=== PATIENT | male | born 1950 | race Caucasian/White ===

== ENCOUNTER 2016-09-01 06:12 | Emergency (ER) | payer BC, MEDICARE ==
[2016-09-01 06:27] VITALS: BP 151/90
[2016-09-01] MEDS ORDERED: Albuterol/Ipratropium 3.0-0.5 MG/3 ML Neb Soln NEB ONE (06:35)
--- NOTE | 2016-09-01 06:38 | EDM.PDOC ---
ED HPI GENERAL MEDICAL PROBLEM - General Chief Complaint: Respiratory Problem Stated Complaint: COUGHING CONSTANTLY Time Seen by Provider: 09/01/16 06:28 Source of Information: Reports: Patient, Family History Limitations: Reports: No Limitations - History of Present Illness INITIAL COMMENTS - FREE TEXT/NARRATIVE: This is a 66-year-old male. He's been having problems with coughing and wheezing since June. He has seen his family doctor initially who placed him on a Z-Winston and some steroids and this seemed to help just slightly but once he stopped the antibiotics and the steroids it continued. He received another Z- Winston by his doctor but that didn't do any good and he continues to wheeze and continues to cough. He has bouts of coughing. He has used an albuterol inhaler but he seems like when he uses it and his lungs seemed to open up he begins to cough even more. He's had no fever no chills he denies any significant upper airway congestion. He's had no nausea no vomiting. - Related Data Allergies Allergy/AdvReac Type Severity Reaction Status Date / Time No Known Allergies Allergy Verified 09/01/16 06:27 Home Meds: Home Meds Albuterol Sulfate [Proair Hfa] 8.5 gm IH Q6H #1 hfa.aer.ad 09/01/16 [Rx] Fluticasone/Salmeterol [Advair Hfa 230-21 Mcg Inhaler] 8 gm IH Q12H #1 aer.w.adap 09/01/16 [Rx] Lisinopril 20 mg PO DAILY 09/01/16 [History] Metoprolol Tartrate 50 mg PO DAILY 09/01/16 [History] atorvaSTATin [Lipitor] 80 mg PO DAILY 09/01/16 [History] predniSONE [Prednisone] 20 mg PO QAM #10 tablet 09/01/16 [Rx] ED ROS GENERAL - Review of Systems Review Of Systems: See Below Constitutional: Denies: Fever, Chills HEENT: Denies: Sinus Problem, Throat Pain Respiratory: Reports: Shortness of Breath, Wheezing, Cough Cardiovascular: Reports: No Symptoms Endocrine: Reports: No Symptoms GI/Abdominal: Denies: Abdominal Pain, Diarrhea, Nausea, Vomiting : Reports: No Symptoms Musculoskeletal: Reports: No Symptoms Skin: Reports: No Symptoms Neurological: Reports: No Symptoms Psychiatric: Reports: No Symptoms ED EXAM, GENERAL - Physical Exam Exam: See Below Exam Limited By: No Limitations General Appearance: Alert, WD/WN, No Apparent Distress Eye Exam: Bilateral Eye: Normal Inspection Ears: Normal External Exam, Normal Canal, Normal TMs Nose: Normal Inspection Throat/Mouth: Normal Inspection, Normal Lips, Normal Oropharynx, Normal Voice, No Airway Compromise Head: Normocephalic Neck: Supple Respiratory/Chest: Wheezing, Other (There is a end expiratory wheeze noted with no significant prolonged expiratory phase and this is heard in the bases of the lungs and slightly apexs). No: Crackles, Rales, Rhonchi Cardiovascular: Regular Rate, Rhythm, No Murmur GI/Abdominal: Soft, Non-Tender Back Exam: Full Range of Motion Extremities: Normal Inspection, Normal Range of Motion Neurological: Alert, Oriented Psychiatric: Normal Affect, Normal Mood Skin Exam: Warm, Dry Course - Vital Signs Last Recorded V/S: Last Vital Signs Temp 97.1 F 09/01/16 06:22 Pulse 72 09/01/16 06:52 Resp 12 09/01/16 06:22 BP 151/90 H 09/01/16 06:22 Pulse Ox 95 09/01/16 06:22 - Orders/Labs/Meds Orders: Active Orders 24 hr Category Date Time Status RT Aerosol Therapy [RC] ASDIRECTED Care 09/01/16 06:35 Active Chest 2V [CR] Stat Exams 09/01/16 06:34 Taken Labs: Laboratory Tests 09/01/16 Range/Units 06:50 WBC 8.25 (4.23-9.07) K/mm3 RBC 5.09 (4.63-6.08) M/mm3 Hgb 13.6 L (13.7-17.5) gm/L Hct 42.2 (40.1-51.0) % MCV 82.9 (79.0-92.2) fl MCH 26.7 (25.7-32.2) pg MCHC 32.2 (32.2-35.5) g/dl RDW Std Deviation 51.5 H (35.1-43.9) fL Plt Count 341 H (163-337) K/mm3 MPV 9.0 L (9.4-12.3) fl Neut % (Auto) 60.4 (34.0-67.9) % Lymph % (Auto) 21.7 L (21.8-53.1) % [place] % (Auto) 8.8 (5.3-12.2) % Eos % (Auto) 8.4 H (0.8-7.0) Baso % (Auto) 0.5 (0.1-1.2) % Neut # (Auto) 4.98 (1.78-5.38) K/mm3 Lymph # (Auto) 1.79 (1.32-3.57) K/mm3 [place] # (Auto) 0.73 (0.30-0.82) K/mm3 Eos # (Auto) 0.69 H (0.04-0.54) K/mm3 Baso # (Auto) 0.04 (0.01-0.08) K/mm3 Meds: Medications Discontinued Medications Generic Name Dose Route Start Last Admin Trade Name Freq PRN Reason Stop Dose Admin Albuterol/Ipratropium 3 ml 09/01/16 06:35 09/01/16 06:51 Duoneb 3.0-0.5 Mg/3 Ml NEB 09/01/16 06:36 3 ml ONETIME ONE Administration - Radiology Interpretation Free Text/Narrative:: Chest x-ray does not show any acute changes - Re-Assessments/Exams Free Text/Narrative Re-Assessment/Exam: 09/01/16 07:40 I spoke to the patient and his significant other regarding the chest x-ray and the blood work. It sounds like he has reactive airway disease probably related to an allergen. To last from June until now and the antibiotics packs did not make any difference with suggestive more of an allergen-related wheezing. He states some years ago he had a problem with wheezing and Advair inhaler made a big difference. He has been using albuterol inhaler that opens them up and helps but it never cures the problem. Decreased him to follow up with his family doctor for further testing. Departure - Departure Time of Disposition: 07:42 Disposition: Home, Self-Care 01 Condition: Fair Clinical Impression: Reactive airway disease Qualifiers: Asthma severity: moderate persistent Asthma complication type: with acute exacerbation Qualified Code(s): J45.41 - Moderate persistent asthma with (acute ) exacerbation - Discharge Information Prescriptions: Albuterol Sulfate [Proair Hfa] 8.5 gm IH Q6H #1 hfa.aer.ad Fluticasone/Salmeterol [Advair Hfa 230-21 Mcg Inhaler] 8 gm IH Q12H #1 aer.w.adap predniSONE [Prednisone] 20 mg PO QAM #10 tablet Instructions: Asthma, Adult Referrals: Clif Leon Jr, MD [Primary Care Provider] - Forms: ED Department Discharge Additional Instructions: When you get the steroids start taking 2 tablets every morning for 5 days, consider getting some Claritin or Radha and take it faithfully, do not get the D form of Claritin or Radha since it will affect your blood pressure, continue to drink lots of fluids, take the Mucinex as needed to break up the phlegm so you can cough it up, continue with your albuterol inhaler and consider using the Advair inhaler twice a day to help with the wheezing, you will need to follow-up with your family doctor for additional workup as an outpatient for the persistent wheezing, return to the ER if needed - My Orders Last 24 Hours: My Active Orders 09/01/16 06:34 Chest 2V [CR] Stat 09/01/16 06:35 RT Aerosol Therapy [RC] ASDIRECTED - Assessment/Plan Last 24 Hours: My Active Orders 09/01/16 06:34 Chest 2V [CR] Stat 09/01/16 06:35 RT Aerosol Therapy [RC] ASDIRECTED
--- NOTE | 2016-09-02 08:28 | CR ---
Chest: Two views of the chest were obtained. Comparison: No previous chest x-ray. Heart size and mediastinum are normal. Previous sternotomy is seen. Lungs are clear with no acute infiltrates. Minimal degenerative spurring is scattered within the spine. Impression: 1. Nothing acute is identified on two-view chest x-ray. Diagnostic code #2
== END 2016-09-01 08:02 | disposition home or self-care (01) ==
LOC: JD.ED 06:12
DX: J45.41 Moderate persistent asthma with (acute) exacerbation (principal); Z79.899 Other long term (current) drug therapy
CPT/HCPCS: 36415; 71020; 71020-26; 85025; 94664; 99283; 99284-25

== ENCOUNTER 2020-09-20 07:07 | Day surgery (SDC) | payer MEDICARE, BC ==
[~2020-09-20 07:07] MED LIST: Lactated Ringers 1,000 ML IV SCH; Lidocaine 1%/Sod Bicarbonate in NS 8.4% 1 ML Syringe IDERM PRN; Sodium Chloride 0.9% 10 ML Syringe FLUSH PRN
[2020-09-20] MEDS ORDERED: Propofol 200 MG/20 ML SDV ONE ×3 (07:11→09:03)
[2020-09-20] MEDS ORDERED: fentaNYL 100 MCG/2 ML SDV ONE (07:12)
[2020-09-20] MEDS ORDERED: Midazolam 1 MG/ML 2 ML SDV ONE (07:12)
[2020-09-20] MEDS ORDERED: Lidocaine 1% 6 ML ONE (07:13)
[2020-09-20] MEDS ORDERED: Bacitracin Oint 15 GM Tube ONE (07:19)
--- NOTE | 2020-09-20 07:45 | PCM.PREANE ---
Preanesthetic Assessment - Procedure Proposed Procedure: Left cheek basal cell carcinoma excision - Anesthesia/Transfusion/Family Hx Anesthesia History: Prior Anesthesia Without Reaction Family History of Anesthesia Reaction: No Transfusion History: Unknown - Review of Systems General: No Symptoms Pulmonary: No Symptoms Cardiovascular: No Symptoms Gastrointestinal: No Symptoms Neurological: No Symptoms Other: Reports: None - Physical Assessment NPO Status Date: 09/19/20 NPO Status Time: 21:00 Vital Signs: Last Vital Signs Temp 98.3 F 09/20/20 07:10 Pulse 67 09/20/20 07:10 Resp 16 09/20/20 07:10 BP 129/72 09/20/20 07:10 Pulse Ox 96 09/20/20 07:10 ASA Class: 3 Mental Status: Alert & Oriented x3 Airway Class: Mallampati = 3 Dentition: Reports: Edentulous Thyro-Mental Finger Breadths: 3 Mouth Opening Finger Breadths: 3 ROM/Head Extension: Full Lungs: Clear to Auscultation, Normal Respiratory Effort Cardiovascular: Regular Rate, Regular Rhythm - Allergies Allergies/Adverse Reactions: Allergies Allergy/AdvReac Type Severity Reaction Status Date / Time No Known Allergies Allergy Verified 09/19/20 14:16 - Acknowledgements Anesthesia Type Planned: MAC Pt an Appropriate Candidate for the Planned Anesthesia: Yes Alternatives and Risks of Anesthesia Discussed w Pt/Guardian: Yes Pt/Guardian Understands and Agrees with Anesthesia Plan: Yes PreAnesthesia Questionnaire HEENT History: Reports: Impaired Vision, Other (See Below) Other HEENT History: wears glasses, has dentures Cardiovascular History: Reports: Bypass, High Cholesterol, Hypertension Respiratory History: Reports: Bronchitis, Recurrent Gastrointestinal History: Reports: None Genitourinary History: Reports: None [employer] History: Reports: None Musculoskeletal History: Reports: Arthritis Neurological History: Reports: None Psychiatric History: Reports: None Endocrine/Metabolic History: Reports: Diabetes, Type II Hematologic History: Reports: None Immunologic History: Reports: None Oncologic (Cancer) History: Reports: None Dermatologic History: Reports: Psoriasis - Past Surgical History Head Surgeries/Procedures: Reports: None HEENT Surgical History: Reports: Tonsillectomy Cardiovascular Surgical History: Reports: Coronary Artery Bypass Respiratory Surgical History: Reports: None GI Surgical History: Reports: Colonoscopy, Hernia, Abdominal Female Surgical History: Reports: None Male Surgical History: Reports: None Endocrine Surgical History: Reports: None Neurological Surgical History: Reports: None Musculoskeletal Surgical History: Reports: None Oncologic Surgical History: Reports: None Dermatological Surgical History: Reports: None - SUBSTANCE USE Tobacco Use Status *Q: Never Tobacco User Days Per Week of Alcohol Use: 2 Number of Drinks Per Day: 3 Total Drinks Per Week: 6 Recreational Drug Use History: No - HOME MEDS Home Medications: Home Meds Albuterol Sulfate [Proair Hfa] 8.5 gm IH Q6H #1 hfa.aer.ad 09/01/16 [Rx] Fluticasone Propion/Salmeterol [Advair Hfa 230-21 Mcg Inhaler] 8 gm IH Q12H #1 aer.w.adap 09/01/16 [Rx] Lisinopril 20 mg PO DAILY 09/01/16 [History] Acetaminophen [Tylenol] 625 mg PO Q4H PRN 09/19/20 [History] Aspirin 81 mg PO DAILY 09/19/20 [History] Cholecalciferol (Vitamin D3) [Vitamin D3] 2,000 unit PO DAILY 09/19/20 [History] Elderberry Fruit and Flower [Black Elderberry 575 mg Cap] 1 cap PO DAILY 09/19/20 [History] Ibuprofen 600 mg PO DAILY 09/19/20 [History] Metoprolol Succinate 50 mg PO DAILY 09/19/20 [History] Multivitamin 1 tab PO DAILY 09/19/20 [History] Triamcinolone Acetonide [Kenalog 0.1% Crm] 1 dose TOP BID PRN 09/19/20 [History] Vitamin B Complex [B Complex] 1 tab PO DAILY 09/19/20 [History] Zinc Gluconate [Zinc] 10 mg PO DAILY 09/19/20 [History] atorvaSTATin Calcium [Atorvastatin Calcium] 80 mg PO DAILY 09/19/20 [History] metFORMIN [Glucophage] 500 mg PO DAILY 09/19/20 [History] sitaGLIPtin Phosphate [Januvia] 50 mg PO DAILY 09/19/20 [History] - CURRENT (IN HOUSE) MEDS Current Meds: Current Medications Lactated Ringer's (Ringers, Lactated) 1,000 mls @ 125 mls/hr IV ASDIRECTED KATALINA Stop: 09/20/20 23:00 Lidocaine/Sodium Bicarbonate (Lidocaine 1%/Sod Bicarbonate In Ns 8.4% 1 Ml Syringe) 0.25 ml IDERM ONETIME PRN PRN Reason: Prior to IV Start Stop: 09/20/20 18:00 Sodium Chloride (Sodium Chloride 0.9% 10 Ml Syringe) 10 ml FLUSH ASDIRECTED PRN PRN Reason: Keep Vein Open Stop: 09/20/20 18:00 Discontinued Medications Bacitracin (Bacitracin Oint 15 Gm Tube) Confirm Administered Dose 15 gm .ROUTE .STK-MED ONE Stop: 09/20/20 07:20 Fentanyl (Fentanyl 100 Mcg/2 Ml Sdv) Confirm Administered Dose 100 mcg .ROUTE .STK-MED ONE Stop: 09/20/20 07:13 Lidocaine HCl (Xylocaine-Mpf 1%) Confirm Administered Dose 6 mls @ as directed .ROUTE .STK-MED ONE Stop: 09/20/20 07:14 Lidocaine/Epinephrine (Lidocaine 1% With Epinephrine 1:100,000 10 Ml Mdv) Confirm Administered Dose 20 ml .ROUTE .STK-MED ONE Stop: 09/20/20 07:20 Midazolam HCl (Midazolam 1 Mg/Ml 2 Ml Sdv) Confirm Administered Dose 2 mg .ROUTE .STK-MED ONE Stop: 09/20/20 07:13 Propofol (Propofol 200 Mg/20 Ml Sdv) Confirm Administered Dose 200 mg .ROUTE .STK-MED ONE Stop: 09/20/20 07:12
[2020-09-20] MEDS ORDERED: Lidocaine 2% Jelly 5 ML Tube ONE (07:49)
[2020-09-20] MEDS: Lidocaine 1% with EPINEPHrine 1:100,000 10 ML MDV ONE ×2 (08:24→09:22)
--- NOTE | 2020-09-20 10:05 | PCM.OPNOTE ---
- General Post-Op/Procedure Note Date of Surgery/Procedure: 09/20/20 Operative Procedure(s): left cheek excision of margins for basal cell carcinoma Findings: scar with no residual cancer on pathology Pre Op Diagnosis: left cheek basal cell carcinoma Post-Op Diagnosis: same Anesthesia Technique: Local, MAC Primary Surgeon: July Horn Anesthesia Provider: Cali Byrne Pathology: left cheek basal cell carcinoma margins Fluid Replacement, Intraop: 1,000 Output, Urine Amount: 0 EBL in mLs: 5 Complications: none apparent Condition: Good
--- NOTE | 2020-09-20 10:05 | PCM.PRNOTE ---
- Free Text/Narrative Note: Operative Report Date of Surgery/Procedure: 09/20/20 Operative Procedure(s): left cheek excision of margins for basal cell carcinoma Pre Op Diagnosis: left cheek basal cell carcinoma Post-Op Diagnosis: same Anesthesia Technique: Local, MAC Primary Surgeon: July Horn Anesthesia Provider: Cali Byrne Fluid Replacement, Intraop: 1,000 Output, Urine Amount: 0 EBL in mLs: 5 Findings: scar with no residual cancer on pathology Pathology: left cheek basal cell carcinoma margins Indication: The patient is a 70-year-old gentleman with a history of a basal cell carcinoma excised from the left cheek. Pathology indicated positive margins. He was seen in the clinic and evaluated for excision of positive margins. The patient elected to proceed with excision and utilization of frozen section of pathology. We discussed risks of bleeding, infection, and scar formation. His written consent was obtained. Description of the procedure: The patient was brought back to the operating room placed in supine position on the operating table. He was then prepped and draped in standard surgical fashion. He had successful induction of MAC anesthesia. We began by marking an ellipse around the previous scar in patient's left cheek. This area was then infiltrated with 1% lidocaine with epinephrine. The ellipse was then excised measuring approximately 3.3 x 1.2 cm. It was oriented with a silk suture and sent to pathology for frozen section evaluation. Once this was completed, there was no evidence of basal cell carcinoma on the deep or peripheral margins. The tissue on the left cheek was then elevated and mobilized using the Bovie device. The skin was then reapproximated and closed in 2 layers using underlying deep dermal suture of 4-0 Vicryl and overlying interrupted 5-0 Prolene sutures. Additional lidocaine was administered during the procedure for patient comfort. The patient tolerated the procedure very well. He was awakened from anesthesia and transported to the recovery area in stable condition. No apparent complications. All sponge and needle counts were correct Complications: none apparent Condition: Good July Horn MD General surgery
[2020-09-20 10:08] VITALS: PULSE 55
--- NOTE | 2020-09-20 10:08 | PCM48HPAN ---
Post Anesthesia Note - EVALUATION WITHIN 48HRS OF ANESTHETIC Vital Signs in Normal Range: Yes Patient Participated in Evaluation: Yes Respiratory Function Stable: Yes Airway Patent: Yes Cardiovascular Function Stable: Yes Hydration Status Stable: Yes Pain Control Satisfactory: Yes Nausea and Vomiting Control Satisfactory: Yes Mental Status Recovered: Yes Vital Signs: Last Vital Signs Temp 96.9 F 09/20/20 09:51 Pulse 55 L 09/20/20 09:51 Resp 16 09/20/20 09:51 BP 112/59 L 09/20/20 09:51 Pulse Ox 94 L 09/20/20 09:51
[2020-09-20 11:03] VITALS: BP 120/57
== END 2020-09-20 10:50 | disposition home or self-care (01) ==
LOC: JD.SDS 07:07
PROVIDERS: ATTEND Surgery
DX: C44.319 Basal cell carcinoma of skin of other parts of face (principal); L90.5 Scar conditions and fibrosis of skin; E11.9 Type 2 diabetes mellitus without complications; E78.5 Hyperlipidemia, unspecified; I10 Essential (primary) hypertension; Z95.1 Presence of aortocoronary bypass graft; Z98.890 Other specified postprocedural states; Z79.899 Other long term (current) drug therapy; Z87.891 Personal history of nicotine dependence; Z79.82 Long term (current) use of aspirin; Z79.84 Long term (current) use of oral hypoglycemic drugs
CPT/HCPCS: 11644; 88305; J2250; J2704; J3010; J7120; 00300; A9270-GY

== ENCOUNTER 2022-01-09 09:20 | Emergency (ER) | payer MEDICARE, BC ==
[2022-01-09 09:52] VITALS: BP 115/64; PULSE 74
== END 2022-01-09 13:15 | disposition home or self-care (01) ==
LOC: JD.ED 09:20
DX: S29.012A Strain of muscle and tendon of back wall of thorax, initial encounter (principal); S00.03XA Contusion of scalp, initial encounter; E78.00 Pure hypercholesterolemia, unspecified; I10 Essential (primary) hypertension; E11.9 Type 2 diabetes mellitus without complications; Z79.899 Other long term (current) drug therapy; Z79.82 Long term (current) use of aspirin; Z79.84 Long term (current) use of oral hypoglycemic drugs; Z95.1 Presence of aortocoronary bypass graft; W18.09XA Striking against other object with subsequent fall, initial encounter
CPT/HCPCS: 70450; 70450-26; 72070; 72070-26; 99284